=== PATIENT | female | born 1975 | race Caucasian/White ===

== ENCOUNTER 2020-11-28 16:03 | Inpatient (IN) | payer MEDICARE ==
[~2020-11-28] VITALS: Ht 157.5 cm; Wt 76.2 kg
[~2020-11-28 16:03] MED LIST: BENTYL 20MG TAB20 MG PO; ZOFRAN ODT 4 MG4 MG SL
[2020-11-28 16:35] LABS: HEMOGLOBIN 14.8 gm/dl (12.3-15.3); RED BLOOD COUNT 4.56 M/UL (4.00-5.10); WHITE BLOOD COUNT 11.1 K/UL (4.5-11.0)
[2020-11-28 17:03] LABS: BUN/CREATININE RATIO 10 (0-10)
[2020-11-28] MEDS ORDERED: DILANTIN 100 M100 MG PO (19:25)
[2020-11-29 03:53] LABS: HEMOGLOBIN 14.7 gm/dl (12.3-15.3); RED BLOOD COUNT 4.55 M/UL (4.00-5.10); WHITE BLOOD COUNT 9.8 K/UL (4.5-11.0)
[2020-11-29 04:07] LABS: BUN/CREATININE RATIO 12 (0-10)
[2020-11-30 02:24] LABS: HEMOGLOBIN 14.4 gm/dl (12.3-15.3); RED BLOOD COUNT 4.5 M/UL (4.00-5.10); WHITE BLOOD COUNT 11.3 K/UL (4.5-11.0)
[2020-11-30 02:42] LABS: BUN/CREATININE RATIO 20 (0-10)
[2020-12-01] MEDS ORDERED: IPRAT-ALBUT 0.5-3 ML NEB (14:57)
[2020-12-01] MEDS ORDERED: VENTOLIN HFA 66.7 GM INH (14:57)
[2020-12-01] MEDS ORDERED: COMPACT COMPRE1 EACH MC (14:57)
== END 2020-12-01 18:13 | disposition home or self-care (01) | DRG 189 ==
LOC: ER1 16:03 → PROG CARE 19:17 → CDU 19:17 → PROG CARE 21:06
PROVIDERS: Emergency Medicine; Internal Medicine; ADMIT Internal Medicine
DX: J96.21 Acute and chronic respiratory failure with hypoxia (principal); J44.1 Chronic obstructive pulmonary disease with (acute) exacerbation; J44.0 Chronic obstructive pulmonary disease with (acute) lower respiratory infection; E66.2 Morbid (severe) obesity with alveolar hypoventilation; Z20.822 Contact with and (suspected) exposure to COVID-19; K08.409 Partial loss of teeth, unspecified cause, unspecified class; J40 Bronchitis, not specified as acute or chronic; F17.210 Nicotine dependence, cigarettes, uncomplicated; G47.33 Obstructive sleep apnea (adult) (pediatric); G40.909 Epilepsy, unspecified, not intractable, without status epilepticus; J96.22 Acute and chronic respiratory failure with hypercapnia; Z68.30 Body mass index [BMI] 30.0-30.9, adult
CPT/HCPCS: 0240U; 36415; 36600; 71045; 71250; 80048; 80053; 82550; 82553; 82803; 83605; 83874; 83880; 84484; 85025; 85027; 85379; 87040; 94640; 94660; 94664; 94760; 96365; 96367; 96368; 96372; 96375; 99285; J0696; J1650; J2920

== ENCOUNTER 2021-08-19 10:14 | Inpatient (IN) | payer MEDICARE, MEDICAID ==
[~2021-08-19] VITALS: Ht 157.5 cm; Wt 76.5 kg
[~2021-08-19 10:14] MED LIST changes: +COMPACT COMPRE1 EACH MC; +DILANTIN 100 M100 MG PO; +IPRAT-ALBUT 0.5-3 ML NEB; +VENTOLIN HFA 66.7 GM INH
[2021-08-19 11:35] LABS: HEMOGLOBIN 13.8 gm/dl (12.3-15.3); RED BLOOD COUNT 4.99 M/UL (4.00-5.10); WHITE BLOOD COUNT 10.6 K/UL (4.5-11.0)
[2021-08-19 12:00] LABS: BUN/CREATININE RATIO 6 (0-10)
[2021-08-20 03:40] LABS: HEMOGLOBIN 12.6 gm/dl (12.3-15.3); RED BLOOD COUNT 4.73 M/UL (4.00-5.10); WHITE BLOOD COUNT 8.9 K/UL (4.5-11.0)
[2021-08-20 03:58] LABS: BUN/CREATININE RATIO 9 (0-10)
[2021-08-22] MEDS ORDERED: MEDROL DOSEPAK 24 MG PO (10:15)
[2021-08-22] MEDS ORDERED: COMBIVENT RESPIM4 GM INH (10:15)
[2021-08-22] MEDS ORDERED: NICOTINE PATCH1 EACH TOP (10:15)
[2021-08-22] MEDS ORDERED: IPRAT-ALBUT 0.5-3 ML NEB (10:15)
[2021-08-22] MEDS ORDERED: ADVAIR 250-501 EACH INH (10:15)
[2021-08-22] MEDS ORDERED: CEFDINIR300 MG PO (10:15)
[2021-08-22] MEDS ORDERED: SPIRIVA HANDIH18 MCG INH (10:15)
== END 2021-08-22 13:30 | disposition home or self-care (01) | DRG 189 ==
LOC: ER1 10:14 → PROG CARE 13:52 → CDU 13:52 → PROG CARE 20:05
PROVIDERS: Family Medicine; Physician Assistant Medical; ADMIT Internal Medicine
PROC: B24BZZZ Ultrasonography of Heart with Aorta (ICD-10-PCS; principal; 2021-08-20)
PROC: 5A0945A Assistance with Respiratory Ventilation, 24-96 Consecutive Hours, High Flow/Velocity Cannula (ICD-10-PCS; 2021-08-20)
DX: J96.21 Acute and chronic respiratory failure with hypoxia (principal); J44.1 Chronic obstructive pulmonary disease with (acute) exacerbation; E66.2 Morbid (severe) obesity with alveolar hypoventilation; J44.0 Chronic obstructive pulmonary disease with (acute) lower respiratory infection; Z20.822 Contact with and (suspected) exposure to COVID-19; G31.84 Mild cognitive impairment of uncertain or unknown etiology; J20.9 Acute bronchitis, unspecified; J96.22 Acute and chronic respiratory failure with hypercapnia; I07.1 Rheumatic tricuspid insufficiency; F17.210 Nicotine dependence, cigarettes, uncomplicated; G40.909 Epilepsy, unspecified, not intractable, without status epilepticus; Z99.81 Dependence on supplemental oxygen; K08.409 Partial loss of teeth, unspecified cause, unspecified class; Z83.3 Family history of diabetes mellitus; Z82.5 Family history of asthma and other chronic lower respiratory diseases; Z82.49 Family history of ischemic heart disease and other diseases of the circulatory system; Z68.30 Body mass index [BMI] 30.0-30.9, adult
CPT/HCPCS: ECHO; 36415; 36600; 70450; 71045; 80048; 80053; 81001; 82550; 82553; 82803; 83036; 83605; 83735; 83880; 84484; 84703; 85025; 85027; 87040; 87086; 93005; 93306; 94640; 94664; 94760; 99285; J0696; J1650; J2920; J2930; Q9967; U0002